=== PATIENT | male | born 1950 | race Caucasian/White ===

== ENCOUNTER 2016-07-03 17:06 | Outpatient (CLI) | payer OTHER, BC ==
--- NOTE | 2016-07-03 17:36 | DIAGNOSTIC IMAGING REPORT ---
PROCEDURE: XR CHEST 2 VIEW INDICATION: COUGH TECHNIQUE: PA and lateral views. COMPARISON: Chest 03/31/2014 FINDINGS: Lungs are clear. Heart size, mediastinum and pulmonary vascularity are normal. Tortuous aorta.. Moderate degenerative changes of the spine. IMPRESSION: 1. No acute changes.
== END 2016-07-03 23:00 ==
LOC: XR SRH 17:06
DX: R05 Cough (principal)